=== PATIENT | male | born 2000 | race African-American/Black ===

== ENCOUNTER 2019-03-14 12:44 | Emergency (ER) | payer OTHER ==
[~2019-03-14] VITALS: Ht 180.3 cm; Wt 70.5 kg
[2019-03-14 15:00] VITALS: BP 128/68
[2019-03-14] MEDS ORDERED: KETOROLAC TROMETHAMINE 30 MG/ML VIAL IM ONE (15:15)
== END 2019-03-14 15:20 | disposition home or self-care (01) ==
LOC: EMS 12:44
DX: L60.0 Ingrowing nail (principal)